=== PATIENT | female | born 1980 | race African-American/Black ===

== ENCOUNTER 2017-01-25 18:12 | Observation (INO) | payer OTHER ==
[~2017-01-25] VITALS: Ht 165.1 cm; Wt 88.5 kg
[2017-01-25] MEDS ORDERED: LIDOCAINE 2% PF Vial for OR 5 ML VIAL. ONE (18:14)
[2017-01-25] MEDS ORDERED: ONDANSETRON PF 4 MG/2 ML VIAL. ONE (18:14)
[2017-01-25] MEDS ORDERED: FAMOTIDINE 20 MG/2 ML VIAL ONE (18:14)
[2017-01-25] MEDS ORDERED: PROPOFOL 20 ML IV ONE (18:14)
[2017-01-25] MEDS ORDERED: DEXAMETHASONE SOD PHOS 20 MG/5 ML VIAL. ONE (18:14)
[2017-01-25] MEDS ORDERED: SUCCINYLCHOLINE 200 MG/10 ML VIAL. ONE (18:15)
[2017-01-25] MEDS ORDERED: fentaNYL PF VIAL 100 MCG/2 ML VIAL ONE (18:15)
[2017-01-25] MEDS ORDERED: MIDAZOLAM HCL/PF 2 MG/2 ML VIAL. ONE (18:15)
[2017-01-25] MEDS ORDERED: ROCURONIUM 100 MG/10 ML VIAL. ONE (18:15)
[2017-01-25] MEDS ORDERED: BUPIVAC MPF-EPI 0.5%-1:200000 30 ML VIAL. ONE (18:27)
[2017-01-25] MEDS ORDERED: SURGICEL HEMOSTAT 4X8 EACH. ONE (18:27)
[2017-01-25] MEDS ORDERED: IV RINGERS,LACTATED 1000ML 1,000 ML IV SCH (18:34)
[2017-01-25] MEDS ORDERED: fentaNYL PF VIAL 100 MCG/2 ML VIAL IV PRN (18:45)
[2017-01-25] MEDS ORDERED: HYDROmorphone 2 MG/ML VIAL IV PRN (18:45)
[2017-01-25] MEDS ORDERED: ONDANSETRON PF 4 MG/2 ML VIAL. IV PRN ×2 (18:45→20:00)
[2017-01-25] MEDS ORDERED: PROCHLORPERAZINE 10 MG/2 ML VIAL. IV PRN ×2 (18:45→20:00)
[2017-01-25] MEDS ORDERED: MORPHINE SULFATE 2 MG/ML DISP.SYRIN. IV PRN (18:45)
[2017-01-25] MEDS ORDERED: LIDOCAINE 1% 1 ML SYRINGE. ID PRN (18:45)
[2017-01-25] MEDS ORDERED: ceFAZolin 1GM IVPB FOR OMNI 100 ML IV ONE (19:23)
[2017-01-25] MEDS ORDERED: GLYCOPYRROLATE 1 MG/5 ML VIAL. ONE (19:35)
[2017-01-25] MEDS ORDERED: NEOSTIGMINE 10 MG/10 ML VIAL. ONE (19:35)
--- NOTE | 2017-01-25 19:50 | PDOC1 ---
History and Physical Date of Admission Date of Admission DATE: 01/25/17 TIME: 19:46 Identification/Chief Complaint Chief Complaint Abd pain and bleeding Problems: Source Source: Caregiver, Patient History of Present Illness History of Present Illness 37 y/o at 8 wks gestation presented to ED with c/o pelvic pain and vaginal bleeding that continued to worsen. Pelvic sono indicated large amount heterogenous fluid in abd and adnexal mass. She was then transferred from [place] to [place] for surgery. Past Medical History Cardiovascular: No pertinent hx Pulmonary: No pertinent hx GI: No pertinent hx Heme/Onc: No pertinent hx Hepatobiliary: No pertinent hx Past Surgical History Past Surgical History: No pertinent history Current Medications Current Medications Current Medications Dexamethasone Sodium Phosphate (Decadron) 20 mg STK-MED ONCE .ROUTE ; Start 01/25 at 18:14; Stop 01/25/17 at 18:15; Status DC Famotidine (Pepcid) 20 mg STK-MED ONCE .ROUTE ; Start 01/25/17 at 18:14; Stop 01/25/17 at 18:15; Status DC Ondansetron HCl (Zofran) 4 mg STK-MED ONCE .ROUTE ; Start 01/25/17 at 18:14; Stop 01/25/17 at 18:15; Status DC Propofol 20 ml @ As Directed STK-MED ONCE IV ; Start 01/25/17 at 18:14; Stop 01/25 at 18:15; Status DC Lidocaine HCl (Lidocaine Pf 2% Vial) 5 ml STK-MED ONCE .ROUTE ; Start 01/25/17 at 18:14; Stop 01/25/17 at 18:15; Status DC Midazolam HCl (Versed) 2 mg STK-MED ONCE .ROUTE ; Start 01/25/17 at 18:15; Stop 01/25/17 at 18:16; Status DC Fentanyl Citrate (Fentanyl 2ml Vial) 100 mcg STK-MED ONCE .ROUTE ; Start at 18:15; Stop 01/25/17 at 18:16; Status DC Rocuronium [place] (Zemuron) 100 mg STK-MED ONCE .ROUTE ; Start 01/25/17 at 18:15 ; Stop 01/25/17 at 18:16; Status DC Succinylcholine Chloride (Anectine) 200 mg STK-MED ONCE .ROUTE ; Start 01/25/17 at 18:15; Stop 01/25/17 at 18:16; Status DC Bupivacaine HCl/ Epinephrine Bitart (Sensorcain-Mpf Epi 0.5%-1:[id number]) 30 ml STK -MED ONCE .ROUTE ; Start 01/25/17 at 18:27; Stop 01/25/17 at 18:28; Status DC Cellulose 1 each STK-MED ONCE .ROUTE ; Start 01/25/17 at 18:27; Stop 01/25/17 at 18:28; Status DC Ondansetron HCl (Zofran) 4 mg PRN Q6HRS PRN IV NAUSEA/VOMITING; Start 01/25/17 at 18:45; Stop 01/26/17 at 18:44 Fentanyl Citrate (Fentanyl 2ml Vial) 25 mcg PRN Q5MIN PRN IV MILD PAIN; Start 01/25/17 at 18:45; Stop 01/26/17 at 18:44 Fentanyl Citrate (Fentanyl 2ml Vial) 50 mcg PRN Q5MIN PRN IV MODERATE PAIN; Start 01/25/17 at 18:45; Stop 01/26/17 at 18:44 Morphine Sulfate 1 mg PRN Q10MIN PRN IV SEVERE PAIN; Start 01/25/17 at 18:45; Stop 01/26/17 at 18:44 Ringer's Solution 1,000 ml @ 30 mls/hr Q24H IV ; Start 01/25/17 at 18:34; Stop 01/26/17 at 06:33 Lidocaine HCl 2 ml PRN 1X PRN ID PRIOR TO IV START; Start 01/25/17 at 18:45; Stop 01/26/17 at 18:44 Hydromorphone HCl (Dilaudid) 0.5 mg PRN Q10MIN PRN IV SEV PAIN, Second choice; Start 01/25/17 at 18:45; Stop 01/26/17 at 18:44 Prochlorperazine Edisylate (Compazine) 5 mg PACU PRN PRN IV NAUSEA, MRX1; Start 01/25/17 at 18:45; Stop 01/26/17 at 18:44 Cefazolin Sodium 100 ml @ As Directed STK-MED ONCE IV ; Start 01/25/17 at 19:23 ; Stop 01/25/17 at 19:24; Status DC Neostigmine Methylsulfate (Bloxiverz) 10 mg STK-MED ONCE .ROUTE ; Start 01/25/17 at 19:35; Stop 01/25/17 at 19:36; Status DC Glycopyrrolate (Robinul) 1 mg STK-MED ONCE .ROUTE ; Start 01/25/17 at 19:35; Stop 01/25/17 at 19:36; Status DC Allergies Allergies: Coded Allergies: No Known Drug Allergies (Unverified , 01/25/17) ROS General: YES: Fatigue, Malaise, Appetite, No: Chills, Night Sweats, Other PSYCHOLOGICAL ROS: YES: Anxiety, No: Behavioral Disorder, Concentration difficultie, Decreased libido, Depression, Disorientation, Hallucinations, Hostility, Irritablity, Memory difficulties, Mood Swings, Obsessive thoughts, Physical abuse, Sexual abuse, Sleep disturbances, Suicidal ideation, Other Eyes: No Blurry vision, No Decreased vision, No Double vision, No Dry eyes, No Excessive tearing, No Eye Pain, No Itchy Eyes, No Loss of vision, No Photophobia , No Scotomata, No Uses contacts, No Uses glasses, No Other HEENT: No: Heacaches, Visual Changes, Hearing change, Nasal congestion, Nasal discharge, Oral lesions, Sinus pain, Sore Throat, Epistaxis, Sneezing, Snoring, Tinnitus, Vertigo, Vocal changes, Other ALLERGY AND IMMUNOLOGY: No: Hives, Insect Bite Sensitivity, Itchy/Watery Eyes, Nasal Congestion, Post Nasal Drip, Seasonal Allergies, Other Hematological and Lymphatic: No: Bleeding Problems, Blood Clots, Blood Transfusions, Brusing, Night Sweats, Pallor, Swollen Lymph Nodes, Other ENDOCRINE: No: Breast Changes, Galactorrhea, Hair Pattern Changes, Hot Flashes , Malaise/lethargy, Mood Swings, Palpitations, Polydipsia/polyuria, Skin Changes , Temperature Intolerance, Unexpected Weight Changes, Other Breast: No New/Changing Breast Lumps, No Nipple changes, No Nipple discharge, No Other Respiratory: No: Cough, Hemoptysis, Orthopnea, Pleuritic Pain, Shortness of breath, SOB with excertion, Sputum Changes, Stridor, Tachypnea, Wheezing, Other Cardiovascular: No Chest Pain, No Palpitations, No Orthopnea, No Paroxysmal Noc. Dyspnea, No Edema, No Lt Headedness, No Other Gastrointestinal: Yes Nausea, Yes Abdominal Pain, No Vomiting, No Diarrhea, No Constipation, No Melena, No Hematochezia, No Other Genitourinary: No Dysuria, No Frequency, No Incontinence, No Hematuria, No Retention, No Discharge, No Urgency, No Pain, No Flank Pain, No Other, No , No , No , No , No , No , No Musculoskeletal: No Gait Disturbance, No Joint Pain, No Joint Stiffness, No Joint Swelling, No Muscle Pain, No Muscular Weakness, No Pain In:, No Swelling In:, No Other Physical Exam General: Cooperative, severe distress HEENT: Mucous membr. moist/pink Lungs: Clear to auscultation Heart: S1S2 Abdomen: Soft, Other (distention with gaurding) VTE Prophylaxis Ordered VTE Prophylaxis Devices: Yes VTE Pharmacological Prophylaxi: No Assessment/Plan Assessment/Plan A: Ruptured Ectopic P: Admit for LPSC evacuation ectopic . NILES GRANADO Jr, MD Jan 25, 2017 19:50
--- NOTE | 2017-01-25 19:57 | PDOC ---
BRIEF OPERATIVE NOTE Pre-Op Diagnosis Ruptured ectopic Post-Op Diagnosis Ruptured Right ectopic Procedure Performed [facility] Right Salpingectomy Surgeon Dr. Bell Anesthesia Type: General Blood Loss 500 ml Specimens Obtained Right fallopian tube with ectopic Findings ruptured right ectopic with 500 ml blood clot in abd and active bleeding from right fallopian tube; nml Left fallopian tube, nml ovaries morena. Complications none NILES BELL Jr, MD Jan 25, 2017 19:57
[2017-01-25] MEDS ORDERED: 0.9 % SODIUM CHLORIDE 10 ML DISP.SYRIN. IV PRN (20:00)
[2017-01-25] MEDS ORDERED: DEXTROSE 50% 25 GM / 50ML DISP.SYRIN. IV PRN (20:00)
[2017-01-25] MEDS ORDERED: CALCIUM CARBONATE 500 MG TAB.CHEW PO PRN (20:00)
[2017-01-25] MEDS ORDERED: diphenhydrAMINE HCL 25 MG CAPSULE PO PRN (20:00)
[2017-01-25] MEDS ORDERED: diphenhydrAMINE 50 MG/ML VIAL IV PRN (20:00)
[2017-01-25] MEDS ORDERED: ZOLPIDEM 5 MG TABLET. PO PRN (20:00)
[2017-01-25 20:18] LABS: HEMATOCRIT 22.3 % (36.0-47.0); HEMOGLOBIN 7.2 g/dL (12.0-15.5); RED BLOOD COUNT 3.04 x10^6/uL (3.50-5.40); RED CELL DISTRIBUTION WIDTH 14.9 % (11.5-14.5); WHITE BLOOD COUNT 10.8 x10^3/uL (4.0-11.0)
[2017-01-25] MEDS: fentaNYL PF VIAL 100 MCG/2 ML VIAL IV PRN ×2 (20:20→20:38)
--- NOTE | 2017-01-25 20:36 | OP ---
DATE OF SURGERY: 01/25/2017 PREOPERATIVE DIAGNOSIS: Ruptured ectopic . POSTOPERATIVE DIAGNOSIS: Ruptured right ectopic . PROCEDURE: Laparoscopic right salpingectomy. SURGEON: Dr. Cory Bell. ANESTHESIA: GETA. ESTIMATED BLOOD LOSS: 500 mL, mostly old blood clot previously in the abdomen. FINDINGS: Ruptured right ectopic with 500 mL of blood clot in the abdomen and active bleeding from the right fallopian tube. Normal left fallopian tube, normal ovaries bilaterally. SUMMARY: A 37-year-old female who presented to [facility] Emergency Room with acute abdominal pain and vaginal bleeding. She was found to be diagnosed with a ruptured ectopic . She was then transferred to [facility]. Once in the OR waiting room, she was counseled on risks, benefits, and expectations of laparoscopic evacuation of ectopic . She and her family voiced clear understanding to proceed. DESCRIPTION OF PROCEDURE: The patient was taken to surgery suite and placed in dorsal lithotomy position where she was prepped with ChloraPrep for abdominal prep and Betadine for vaginal prep. After adequate anesthesia, bivalve speculum was placed vaginally. Anterior lip of the cervix grasped with a single tooth tenaculum. Uterine acorn manipulator was then placed. The bivalve speculum was removed. Attention was now placed on abdomen. Small transverse skin incision made with scalpel just below the umbilicus. The Veress needle was then placed through the infraumbilical incision site. The abdomen was allowed to insufflate with CO2 gas up to 1-1/2 liters. The Veress needle was then removed. A 5-mm trocar was placed. Scope was positioned. There was a large amount of blood in the abdominal cavity, about 500 mL. Two additional incisions made in the left lower quadrant in which a 5-mm and 11-mm port was placed. Suction irrigation was utilized to evacuate the blood clot that was there. EnSeal device and grasper were used to identify the right fallopian tube in which the ectopic was there with active bleeding. The utero-ovarian pedicle was coagulated and dissected with EnSeal device. The distal port of the fallopian tube was then dissected away from the adnexa using the EnSeal device. The area was hemostatic and verified with suction irrigation. At the right fallopian tube with ectopic was removed with the Endobag. Suction irrigation was continued to remove as much of the blood clot as possible. Small amount of normal saline was left in the posterior cul-de-sac. The left fallopian tube and ovary appeared normal. The remainder of the abdominal cavity appeared normal. The trocars were then removed under direct visualization. The abdomen was allowed to deflate as much as possible. The left lower quadrant incision site in which the 11-mm port was placed was closed at the fascial layer using 2-0 Vicryl suture in a [id number] manner. The 3 incisions were closed at the skin level using 4-0 Vicryl suture in a subcuticular manner. Marcaine 0.5% with epinephrine was injected at each incision site. The uterine acorn manipulator and single tooth tenaculum were removed. The patient tolerated the procedure well and was taken to recovery in stable condition. Sponge and needle counts correct x 3. CORY BELL MD DR: JAYMIE/brandee JOB#: [id number] / [id number]
[2017-01-25 22:06] VITALS: BP_SYST 102; BP_SYST 125; BP_DIAS 60; BP_DIAS 63
[2017-01-25] MEDS: GABAPENTIN 300 MG CAPSULE. PO SCH (22:18)
[2017-01-25 22:21] VITALS: BP 108/66
[2017-01-25] MEDS: KETOROLAC TROMETHAMINE 30 MG/ML INJ. IV PRN (22:50)
[2017-01-25 23:00] VITALS: BP 102/60
[2017-01-25 23:30] VITALS: BP 87/56
[2017-01-25 23:40] VITALS: BP 103/56
[2017-01-26] VITALS (14 sets, daily range): BP systolic 98–123; BP diastolic 52–73
[2017-01-26] MEDS: KETOROLAC TROMETHAMINE 30 MG/ML INJ. IV PRN (05:17)
[2017-01-26] MEDS: GABAPENTIN 300 MG CAPSULE. PO SCH ×2 (08:26→18:10)
[2017-01-26] MEDS: SIMETHICONE 80 MG TAB.CHEW PO PRN ×3 (08:26→18:10)
[2017-01-26] MEDS: oxyCODONE/APAP 5/325 1 TAB TABLET PO PRN ×2 (08:28→12:49)
--- NOTE | 2017-01-26 12:12 | PDOC ---
SURGICAL PROGRESS NOTE Subjective Pt. feeling better. She reports mild headache. No dizziness, CP or SOB. ABd incision site with bleeding overnight. It is much better this am with scant serosanguinous drainage. Bandage changed and now no bleeding. Vital Signs Vital Signs Date Time Temp Pulse Resp B/P (MAP) Pulse Ox O2 Delivery O2 Flow Rate FiO2 01/26/17 09:30 100 16 115/68 (84) Room Air 01/26/17 07:45 98.6 100 98.6 01/25/17 22:08 8.0 I&O Intake and Output 01/26/17 07:00 Intake Total 1050 ml Output Total 600 ml Balance 450 ml Intake Oral 100 ml IV Total 600 ml Blood Product IV Normal Saline Flush 350 ml Output Urine Total 100 ml Estimated Blood Loss 500 ml # Voids 2 PATIENT HAS A PIERRE: No General: Alert, Oriented X3, Cooperative HEENT: Atraumatic Lungs: Clear to auscultation Heart: Regular rate Abdomen: Normal bowel sounds, Soft, No tenderness, No masses, Other (Bandage changed. Incision site intact and now dry.) Psych/Mental Status: Mental status NL Labs Laboratory Tests Test 01/25/17 20:10 White Blood Count 10.8 x10^3/uL (4.0-11.0) Red Blood Count 3.04 x10^6/uL (3.50-5.40) Hemoglobin 7.2 g/dL (12.0-15.5) Hematocrit 22.3 % (36.0-47.0) Mean Corpuscular Volume 73 fL (79-100) Mean Corpuscular Hemoglobin 24 pg (25-35) Mean Corpuscular Hemoglobin Concent 32 g/dL (31-37) Red Cell Distribution Width 14.9 % (11.5-14.5) Platelet Count 170 x10^3/uL (140-400) Laboratory Tests Test 01/25/17 20:10 White Blood Count 10.8 x10^3/uL (4.0-11.0) Red Blood Count 3.04 x10^6/uL (3.50-5.40) Hemoglobin 7.2 g/dL (12.0-15.5) Hematocrit 22.3 % (36.0-47.0) Mean Corpuscular Volume 73 fL (79-100) Mean Corpuscular Hemoglobin 24 pg (25-35) Mean Corpuscular Hemoglobin Concent 32 g/dL (31-37) Red Cell Distribution Width 14.9 % (11.5-14.5) Platelet Count 170 x10^3/uL (140-400) Assessment/Plan A: POD#1 s/p LPSC RIght Salpingectomy for ectopic s/p transfusion 2 Units PRBC's for acute blood loss anemia. P: D/c home this evening. Problems: NILES GRANADO Jr, MD Jan 26, 2017 12:12
--- NOTE | 2017-01-26 12:12 | DISCH ---
DISCHARGE INSTRUCTIONS Condition on Discharge Condition on Discharge: Stable Activity After Discharge Activity Instructions for Disc: Activity as tolerated Lifting Instructions after Dis: No heavy lifting Driving Instructions after Dis: Do not drive today Diet after Discharge Diet after Discharge: Regular Contacting the DRNéstor after DC Call your doctor for: Concerns you may have Follow-Up Follow up with: Dr. Bell in 1 week. NILES BELL Jr, MD Jan 26, 2017 12:12
[2017-01-26] MEDS ORDERED: IBUP-1060 PO (12:14)
[2017-01-26] MEDS ORDERED: DOCU-109 PO (12:14)
[2017-01-26] MEDS ORDERED: OXYC-323 PO (12:14)
[2017-01-26 13:08] LABS: BASO % 0 % (0-3); EOS % 0 % (0-3); HEMATOCRIT 28.5 % (36.0-47.0); HEMOGLOBIN 9.4 g/dL (12.0-15.5); LYMPH # 1.5 x10^3/uL (1.0-4.8); LYMPH % 14 % (24-48); MEAN CORPUSCULAR HEMOGLOBIN 25 pg (25-35); MEAN CORPUSCULAR HGB CONC 33 g/dL (31-37); MEAN CORPUSCULAR VOLUME 76 fL (79-100); MONO % 9 % (0-9); NEUT % 77 % (31-73); PLATELET COUNT 152 x10^3/uL (140-400); RED BLOOD COUNT 3.77 x10^6/uL (3.50-5.40); RED CELL DISTRIBUTION WIDTH 16.2 % (11.5-14.5); WHITE BLOOD COUNT 11.2 x10^3/uL (4.0-11.0)
[2017-01-26] MEDS: IBUPROFEN 800 MG TABLET. PO PRN (18:11)
[2017-01-26] MEDS ORDERED: DOCUSATE SODIUM 100 MG CAPSULE. PO PRN (18:45)
[2017-01-27] MEDS: IBUPROFEN 800 MG TABLET. PO PRN (02:19)
[2017-01-27] MEDS: GABAPENTIN 300 MG CAPSULE. PO SCH (02:19)
[2017-01-27 04:30] VITALS: BP 96/60
[2017-01-27] MEDS: oxyCODONE/APAP 5/325 1 TAB TABLET PO PRN (08:55)
[2017-01-27 10:20] VITALS: BP 118/74
--- NOTE | 2017-01-28 13:51 | PATHOLOGY ---
PATHOLOGY REPORT * * * * * * * * FINAL DIAGNOSIS: Fallopian tube, laparoscopic right salpingectomy: - Ectopic tubal , ruptured. (JPM:mgr; 01/28/2017) REPORT ELECTRONICALLY SIGNED BY: Ha Harding M.D. DATE/TIME: 01/28/2017 13:50 * * * * * * * * GROSS PATHOLOGY: The specimen is received in formalin, designated, "Devorah Gonzales, right fallopian tube" and consists of a fimbriated fallopian tube, weighing 6.3 g and measuring 5.8 cm in length and from 0.7 up to 1.3 cm in diameter. The serosa is dark purple ashton. Near the proximal end there is a defect in the wall of the fallopian tube and a small fragment of spongy ashton alcantara tissue with adherent blood clot is present. This measures 2.7 x 1.3 x 1.0 cm in greatest dimension. This is bisected and submitted entirely in cassette A1. The area of apparent rupture is submitted entirely in cassette A2 and the remaining fallopian tube is generously sampled utilizing alternating sections in cassette A3. There is no gross evidence of or embryonic tissue present. (JPM; 01/27/17) INITIAL CPT CODE(S): A; 55111 Professional services performed [place] [facility] [place] [address] Technical services performed by [facility] at [address] [place] [address], [address] [address]. SPECIMEN(S) RECEIVED: A.Right fallopian tube CLINICAL HISTORY: Ectopic PATIENT: DEVORAH GONZALES /AGE: 701/14/1980 (Age: 37) PATIENT #: [id number] ALT CASE #: SPECIMEN COLLECTION DATE: 01/25/2017 SPECIMEN RECEIVED DATE: 01/27/2017 [facility] - [id number] [place] [address] - PHONE: [phone] * * * END OF REPORT * * *
== END 2017-01-27 10:25 | disposition home or self-care (01) ==
LOC: SURG 18:12 → 3 NORTH 18:56 → INTOOBSV 18:56
PROVIDERS: ADMIT Obstetrics & Gynecology; ATTEND Obstetrics & Gynecology
DX: O00.90 Unspecified ectopic pregnancy without intrauterine pregnancy (principal); D62 Acute posthemorrhagic anemia; Z3A.08 8 weeks gestation of pregnancy
CPT/HCPCS: 36415; 36430; 59151; 85027; 86850; 86900; 86901; 86920; 88305; 96374; 96376; A4215; G0378; G0379; J0330; J0690; J1100; J1885; J2001; J2250; J2405; J2704; J2710; J3010; J3490; J7030; P9016; S0028; J7120